=== PATIENT | female | born 1985 | race Caucasian/White ===

== ENCOUNTER 2022-02-13 11:22 | Outpatient (REF) | payer OTHER, SELFPAY | END 2022-02-13 11:23 | disposition home or self-care (01) | LOC: HO.LNP 11:22 | PROVIDERS: Visit Provider Nurse Practitioner Family | DX: N39.0 Urinary tract infection, site not specified (principal) | CPT/HCPCS: 87086; 87088; 87186 ==

== ENCOUNTER 2022-02-17 17:25 | Emergency (ER) | payer OTHER, SELFPAY ==
--- NOTE | ~2022-02-17 | XR_ITS ---
EXAMINATION: XR ANKLE, LEFT CLINICAL INFORMATION: Ankle pain and swelling COMPARISON: None TECHNIQUE: AP, lateral, and mortise views of the left ankle. FINDINGS: There is soft tissue swelling laterally. There is a linear bony fragment seen at the tip of the lateral malleolus medially. Findings consistent with an avulsion fracture. No other fractures are seen. The ankle mortise appears stable. XR/XR ankle LT 2V IMPRESSION: Soft tissue swelling laterally with avulsion fracture at the tip of the lateral malleolus medially.
[2022-02-17 17:36] VITALS: BP 160/100; PULSE 110; O2SAT 98
[2022-02-17 17:42] VITALS: BP 140/83; PULSE 91; RESP 24; TEMP 37.7; O2SAT 98; BMI 25.9
--- NOTE | 2022-02-17 17:43 | ED.EXTPRO ---
HPI - Extremity Problem General Chief complaint: Extremity Problem Stated complaint: SWOLLEN ANKLE Time Seen by Provider: 02/17/22 17:43 Source: patient and EMS Mode of arrival: EMS Limitations: no limitations History of Present Illness HPI Narrative: 36 year old female presents s/p rolling her ankle just prior to arrival. Reports her foot katlyn caught in a textile bag sewer while walking and she rolled her ankle. Reports 10/10 pain and reports that her ankle is very swollen. Pain is worse w/ movement and weight bearing. Never has had left ankle pain before. Denies numbness and tingling. MD Complaint: other (ankle pain ) Related Data Previous Rx's Medication Instructions Recorded sulfamethoxazole 800 1 tab PO Q12H 5 days #10 tabs 02/12/22 mg-trimethoprim 160 mg tablet (Bactrim DS) morphine 15 mg immediate release 15 mg PO Q8H PRN pain #6 tabs 02/17/22 tablet Allergies Allergy/AdvReac Type Severity Reaction Status Date / Time No Known Allergies Allergy Verified 02/12/22 14:25 Review of Systems Review of Systems: Constitutional : No Weight loss, No Fever, No Chills, No Fatigue, No Malaise ENT/Mouth : No sore throat, No Rhinorrhea Eyes: No Eye Pain, No Swelling, No Redness Cardiovascular : No Chest Pain, No SOB, No Dyspnea on Exertion, No Orthopnea, No Edema, No Palpitations Respiratory : No Cough, No Sputum, No Wheezing Gastrointestinal : No Nausea, No Vomiting, No Diarrhea, No Constipation, No abdominal Pain, No Hematochezia, No Melena Genitourinary : No Dysuria, No Urinary Frequency, No Hematuria, Musculoskeletal : + joint pain, No Myalgias, No Joint Swelling Skin : No Skin Lesions, No rash Neuro : No Weakness, No Numbness, No Dizziness, No Headache All other systems reviewed and are negative Yes all other systems are reviewed and are negative [facility] Past Medical History Attestation statement: The following information was validated with the patient. Source: old records reviewed and nursing notes reviewed Physical Exam Vital Signs: Vital Signs: Last Vital Signs Temp 99.8 F 02/17/22 17:42 Pulse 91 02/17/22 17:42 Resp 24 H 02/17/22 17:42 BP 140/83 H 02/17/22 17:42 Pulse Ox 98 02/17/22 17:42 O2 Del Method 02/17/22 17:42 BMI result Body Mass Index 25.9 vss Appearance: Alert.? Oriented X3.? No acute distress.? Head: Normocephalic, atraumatic, no step-offs or deformities Eyes: Pupils equal, round and reactive to light.? CVS: Normal heart rate and rhythm.? Pulses normal.? Respiratory: No respiratory distress.? Breath sounds normal.? Abdomen: Soft and nontender.? Skin: Skin warm and dry.? Normal skin color.? Normal skin turgor.? Extremities: No lower extremity edema.? No calf ttp. 5/5 strength to bilateral upper and lower extremities. + eccymosis & swelling to left lateral malleolous with pain to palpation. Full rom to b/l ankles however painful on left. Normal cap refill to LE. 2+ DP,PT,AT equal andd bl. Normal senation. No foot drop b.l Neuro: Oriented X 3.? No motor deficit.? No sensory deficit. CN 2-12 intact Course Reevaluation(s) Reevaluation #1: X-ray showing an avulsion fracture to the lateral malleolus of affected foot. At this time patient will be discharged home will give morphine for pain, educated on proper use of morphine. Educated on rest, ice, compress and elevate. Will be given crutches and a walking boot. At this time I feel comfortable discharge with prompt PCP and Ortho follow-up. Educated on worrisome signs and symptoms, outlined on discharge. Time: 20:12 MDM - Extremity (Nontraumatic) MDM Narrative Medical decision making narrative: 1748 36 yo f presents w/ left ankle pain sp rolling ankle prior to arrival. 01/19 pain. Evaluated by this PA-C in triage PE- eccymosis & swelling to left lateral malleolous with pain to palpation. Full ROM to b/l ankles however painful on left. Normal cap refill to LE. 2+ DP,PT,AT equal and bl. Normal sensation. No foot drop. Concerns for fx and or dislocation. Other differentials sprain/strain. No signs of NV compromise. Plan- imaging Medical Records Attestation: I reviewed the patient's medical records. Lab Data Attestation: I reviewed the patient's lab results. Critical Care Time Critical Care Time Critical Care Time: No Discharge Plan Discharge Clinical Impression: Avulsion fracture of lateral malleolus Patient Disposition: Home, Self-Care Instructions: Ankle Fracture (ED), Crutch Instructions (ED), R.I.C.E. Treatment (ED) Additional Instructions: Take your medications as prescribed. If you were prescribed antibiotics today, it is important that you take your medication to their entirety, do not skip any doses, do not finish them early. Follow-up with your primary care provider this week. Return to the emergency department with new or worsening symptoms. Such as fevers, chills, chest pain, shortness of breath, nausea, vomiting, dizziness, headache, vision changes, lethargy, significant swelling, numbness or tingling In case of emergency call 911. Rest, ice, compress, elevate extremities. Use crutches as indicated. You can take ibuprofen every 6 hours, Tylenol every 4 as needed for mild to moderate pain or discomfort. For severe pain take morphine as prescribed. Please do not show this medication with others, do not take this while driving or operating machinery, this can cause addiction, do not mix with alcohol. Please follow-up with the orthopedic team information below. Prescriptions: New morphine 15 mg tablet 15 mg PO Q8H PRN (Reason: pain) Qty: 6 0RF Rx Instructions: Partial Fill upon patient request. No Action sulfamethoxazole-trimethoprim [Bactrim DS] 800-160 mg tablet 1 tab PO Q12H 5 Days Qty: 10 0RF [place]errals: [facility] [place] [facility] Surgeons [Provider Group] - 1 week Stand Alone Forms: Work/School Release
[2022-02-17] MEDS: Morphine Sulfate Immed Release 15 MG TABLET PO (20:39)
== END 2022-02-17 21:05 | disposition home or self-care (01) ==
PROVIDERS: Emergency Provider Internal Medicine
DX: S82.62XA Displaced fracture of lateral malleolus of left fibula, initial encounter for closed fracture (principal); W17.1XXA Fall into storm drain or manhole, initial encounter; Y93.01 Activity, walking, marching and hiking; Y92.414 Local residential or business street as the place of occurrence of the external cause; Y99.9 Unspecified external cause status
CPT/HCPCS: 73600; 99283

== ENCOUNTER 2022-02-21 13:03 | Emergency (ER) | payer OTHER, SELFPAY ==
[2022-02-21 14:28] VITALS: BP 135/86; PULSE 92; RESP 16; TEMP 36.2; O2SAT 95; BMI 26.5
--- NOTE | 2022-02-21 14:28 | ED.LOWEXIN ---
HPI - Extremity Injury (Lower) General Chief Complaint: Extremity Injury, Lower Stated Complaint: L Ankle pain Time Seen by Provider: 02/21/22 14:33 Source: patient Mode of arrival: ambulatory Limitations: no limitations History of Present Illness HPI Narrative: 46-year-old female who was seen here on Wednesday after she had a fall where she twisted her ankle was diagnosed with a left ankle avulsion fracture given morphine 6 tablets and has a follow-up appointment with Dr. Troy on the 02 of March presenting to the ER with complaints of worsening pain due to she only had 6 tablets of morphine and her appointments on the and she can not hold off until then. She is currently on methadone she is taking that as prescribed. She denies any new injuries. Reports that she would just like a few more tablets to get her through until her appointment along with Motrin and Tylenol. She denies any other symptoms complaints or concerns at this time. MD complaint: ankle injury and fall Onset (ago): day(s) (4) Injury: Left: ankle Place: street/outdoors Severity: similar to previous episodes Relieving factors: nothing Exacerbating factors: weight bearing, movement and palpation Context: fall Associated symptoms: swelling Other symptoms: none Treatments prior to arrival: cold therapy and other (see above ) Related Data Previous Rx's Medication Instructions Recorded sulfamethoxazole 800 1 tab PO Q12H 5 days #10 tabs 02/12/22 mg-trimethoprim 160 mg tablet (Bactrim DS) morphine 15 mg immediate release 15 mg PO Q8H PRN pain #6 tabs 02/17/22 tablet acetaminophen 500 mg tablet 1,000 mg PO QID PRN fever or pain 02/21/22 (Tylenol Extra Strength) #14 tabs ibuprofen 800 mg tablet 800 mg PO Q8H PRN pain #30 tabs 02/21/22 morphine 15 mg immediate release 15 mg PO Q12H PRN pain #20 tabs 02/21/22 tablet Allergies Allergy/AdvReac Type Severity Reaction Status Date / Time No Known Allergies Allergy Verified 02/12/22 14:25 Review of Systems Review of Systems: Constitutional : No Weight loss, No Fever, No Chills, No Night Sweats, No Fatigue, No Malaise ENT/Mouth : No Hearing loss, No Ear Pain, No Nasal Congestion, No Sinus Pain, No Hoarseness, No sore throat, No Rhinorrhea, No Swallowing Difficulty Eyes: No Eye Pain, No Swelling, No Redness, No Foreign Body, No Discharge, No Vision Changes Cardiovascular : No Chest Pain, No SOB, No Dyspnea on Exertion, No Orthopnea, No Edema, No Palpitations Respiratory : No Cough, No Sputum, No Wheezing, No Smoke Exposure, No Dyspnea Gastrointestinal : No Nausea, No Vomiting, No Diarrhea, No Constipation, No abdominal Pain, No Hematochezia, No Melena Genitourinary : no irregular bleeding, No Dysuria, No Urinary Frequency, No Hematuria, No Urinary Incontinence, No Urgency, No Flank Pain, No Urinary Flow Changes, No Hesitancy Musculoskeletal :+ left ankle joint pain/swelling, No Myalgias Skin : No Skin Lesions, No rash Neuro : No Weakness, No Numbness, No Paresthesias, No Loss of Consciousness, No Dizziness, No Headache Psych : No Anxiety/Panic, No Depression, No SI/HI/AH/VH, No Social Issues, Heme/Lymph: No Bruising, No Bleeding,No Lymphadenopathy Endocrine : No Polyuria, No Polydipsia, No Temperature Intolerance Yes all other systems are reviewed and are negative [facility] Past Medical History Attestation statement: The following information was validated with the patient. Source: old records reviewed and nursing notes reviewed Physical Exam Vital Signs: Vital Signs: Last Vital Signs Temp 97.2 F 02/21/22 14:28 Pulse 92 02/21/22 14:28 Resp 16 02/21/22 14:28 BP 135/86 02/21/22 14:28 Pulse Ox 95 02/21/22 14:28 O2 Del Method 02/21/22 14:28 BMI result Body Mass Index 26.5 vital signs have been reviewed as normal and appeared to be correct. Blood pressure normal Heart rate normal. Respiration rate normal. Temperature normal. Oxygen saturation normal. Appearance: Alert. Oriented X3. No acute distress. Head: Normal external exam. Normocephalic. Atraumatic. Eyes: PERRLA. EOMI. Conjunctiva and sclera normal. Eyelids normal. ENT: Pharynx normal. Uvula midline. Moist mucous membranes. Neck: Normal inspection. Neck supple. FROM. CVS: Normal heart rate and rhythm. Respiratory: No respiratory distress. Painless inspiration. Skin: Skin warm and dry. Normal skin color. Normal skin turgor. No rashes/lesions/lacerations noted. Extremities: No lower extremity edema. Patient with moderate tenderness palpation soft tissue swelling and ecchymosis to the lateral aspect of the left ankle with limited range of motion due to pain. No obvious ligamentous or tendon injury noted. Achilles tendon is intact not ruptured. Not consistent with muscle rupture. No calf tenderness is noted. Otherwise all other extremities exhibit normal range of motion nontender. Neuro: Oriented X 3. No motor deficit. No sensory deficit. Reflexes normal. Normal steady gait. No focal neuro deficits noted. Vascular: + radial pulses/+ 2 distal pedal pulses/+2 dorsalis pedis b/l. Normal cap refill. No cyanosis noted to upper extremity nails and lower extremity toes nails. Course Reevaluation(s) Reevaluation #1: - pt reports she was here Wednesday and had an avulsion fracture now having worsening pain she still has 1 morphine left although is nervous that she will not have anymore medications until her appointment on the . She denies any new injuries. On exam patient has moderate soft tissue swelling and ecchymosis. No obvious ligamentous or tendon injury noted. Will DC home with a new script for Motrin/Tylenol and morphine. I explained to her that we will not be able to give her another prescription she returns a 3rd time therefore she would have to follow up with her primary care provider or methadone clinic about a possibly increasing her methadone dose until her appointment. I also spoke to her about alternate between Motrin Tylenol every 3 hours along with the morphine. Will DC home with instructions to follow-up Orthopedics and her PCP as scheduled and to return if any new or worsening symptoms. Patient understands agrees with this plan. Time: 14:29 MDM - Extremity Injury (Lower) Medical Records Attestation: I reviewed the patient's medical records. Discharge Plan Discharge Clinical Impression: Ankle fracture, left Patient Disposition: Home, Self-Care Instructions: Ankle Fracture (ED) Prescriptions: New morphine 15 mg tablet 15 mg PO Q12H PRN (Reason: pain) Qty: 20 0RF Rx Instructions: Partial Fill upon patient request. ibuprofen 800 mg tablet 800 mg PO Q8H PRN (Reason: pain) Qty: 30 0RF acetaminophen [Tylenol Extra Strength] 500 mg tablet 1,000 mg PO QID PRN (Reason: fever or pain) Qty: 14 0RF No Action morphine 15 mg tablet 15 mg PO Q8H PRN (Reason: pain) Qty: 6 0RF Rx Instructions: Partial Fill upon patient request. sulfamethoxazole-trimethoprim [Bactrim DS] 800-160 mg tablet 1 tab PO Q12H 5 Days Qty: 10 0RF Referrals: [facility] [place] Orthopedic Surgeons [Provider Group] (follow up on the as scheduled )
[2022-02-21] MEDS: Ibuprofen 800 MG TABLET PO (14:40)
[2022-02-21] MEDS: Morphine Sulfate Immed Release 15 MG TABLET PO (14:40)
--- OUTSIDE RECORDS SUMMARY | 2022-02-21 14:50 | XMS_ITS | Continuity of Care Document ---
:1985 Author Organization [facility] Address [address] [place] [address]- Care Team Providers Name Role Phone Not on Staff, PCP Primary Care Physician Unavailable Encounter [facility] Date(s): 12/04/19 - 12/05/[address] [address]- [facility] Discharge Disposition: A-D/C Walkout Attending Physician: Not on Staff, Attending MD Admitting Physician: Not on Staff, Admitting MD Referring Physician: Not on Staff, Referring MD Allergies, Adverse Reactions, Alerts Substance Reaction Severity Status NKA Active Immunizations Given and Recorded Vaccine Date Status Refusal Reason tetanus/diphtheria/pertussis, acel(Tdap) 12/07/13 Given Medications docusate sodium 100 mg oral capsule 1 capsule = 100 mg, By Mouth, 2 times a day, # 60 capsule, 0 Refills, Maintenance, 07/14/19 2:13:00 EDT, Capsule, [id number], 155, cm, 07/14/19 0:21:00 EDT, Height, 67.9, kg, 07/14/19 0:01:00 EDT, Dry Weight Start Date: 07/14/19 Status: OrderedMethadone Liquid = 60 mg, By Mouth, Daily, 0 Refills, Maintenance, 10/21/18 22:03:31 EDT, Solution, Partial fill uponpatient request Start Date: 10/21/18 Status: Ordered Vital Signs Most recent to oldest [Reference Range]: 1 2 Oxygen Saturation [94-100 %] 100 % 98 % (12/04/19 11:52 PM) (12/04/19 9:46 PM) Pulse Rate [55-90 bpm] 86 bpm 97 bpm (12/04/19 11:52 PM) *H* (12/04/19 9:46 PM) Blood Pressure [90-138/55-84 mm Hg] 116/86 mm Hg 132/ 91 mm Hg (12/04/19 11:52 PM) (12/04/19 9:46 PM) Respiratory Rate [16-30 br/min] 14 br/min 16 br/mi n *L* (12/04/19 9:46 PM) (12/04/19 11:52 PM) Temperature [96.8-100.4 DegF] 98.3 DegF 98.2 DegF (12/04/19 11:52 PM) (12/04/19 9:46 PM) Mode of Delivery (Oxygen) Room air Room air (12/04/19 11:52 PM) (12/04/19 9:46 PM) Blood pressure sites Arm, right Arm, left (12/04/19 11:52 PM) (12/04/19 9:46 PM) Temperature Route Oral Oral (12/04/19 11:52 PM) (12/04/19 9:46 PM) Social History Social History Type Response Tobacco Use: 4 or less cigarettes(le ss than 1/4 pack)/day in last 30 days. Sex
--- OUTSIDE RECORDS SUMMARY | 2022-02-21 14:50 | XMS_ITS | Continuity of Care Document ---
:1985 Author Organization [facility] [employer] [facility] p Address [address] [place] [address], [address] [place] [id number]- Care Team Providers Name Role Phone Not on Staff, PCP Primary Care Physician Unavailable [place] [facility] [place] [facility] [employer] [facility] [address] [place] [address], [address] [place] [id number] Allergies, Adverse Reactions, Alerts Substance Reaction Severity Status NKA Active Immunizations Given and Recorded Vaccine Date Status Refusal Reason tetanus/diphtheria/pertussis, acel(Tdap) 12/07/13 Given Not Given Vaccine Date Status Refusal Reason influenza virus vaccine, inactivated 01/30/21 Not Given Patient Refuses Medications docusate sodium 100 mg oral capsule 1 capsule = 100 mg, By Mouth, 2 times a day, # 60 capsule, 0 Refills, Maintenance, 07/14/19 2:13:00 EDT, Capsule, [id number], 155, cm, 07/14/19 0:21:00 EDT, Height, 67.9, kg, 07/14/19 0:01:00 EDT, Dry Weight Start Date: 07/14/19 Status: Ordereddoxycycline hyclate 100 mg oral tablet 1 tablet = 100 mg, By Mouth, 2 times a day, # 22 tablet, 0 Refills, Maintenance, 01/31/21 8:54:00 EDT, Tablet, [id number], Partial fill upon patient request if the prescription is for a schedule II opioid drug., 155, cm, 01/31/21 3:51:00 EDT,... Start Date: 01/31/21 Stop Date: 02/11/21 Status: OrderedDoxycycline Tablet 100 mg, By Mouth, 2 times a day, Maintenance, 01/31/21 8:53:00 EDT Start Date: 01/31/21 Status: OrderedFlagyl 500 mg oral tablet 1 tablet = 500 mg, By Mouth, Every 12 hours, # 22 tablet, 0 Refills, Maintenance, 01/31/21 8:54:00 EDT, Tablet, [id number], Partial fill upon patient request if the prescription is for a schedule II opioid drug., 155, cm, 01/31/21 3:51:00 EDT,... Start Date: 01/31/21 Stop Date: 02/11/21 Status: OrderedMethadone Liquid = 60 mg, By Mouth, Daily, 0 Refills, Maintenance, 10/21/18 22:03:31 EDT, Solution, Partial fill uponpatient request Start Date: 10/21/18 Status: OrderedmetroNIDAZOLE 500 mg oral tablet 1 tablet = 500 mg, By Mouth, Every 12 hours, 0 Refills, Maintenance, 01/31/21 8:53:00 EDT, Tablet, Partial fill upon patient request if the prescription is for a schedule II opioid drug. Start Date: 01/31/21 Status: OrderedZofran 4 mg oral tablet 1 tablet = 4 mg, By Mouth, Every 8 hours, PRN Vomiting, # 12 tablet, 0 Refills, Maintenance, 12/29/19 10:38:00 EDT, Tablet, [id number], 155, cm, 07/28/19 10:23:00 EDT, Height, 67.9, kg, 07/14/19 0:01:00 EDT, Dry Weight Start Date: 12/29/19 Status: OrderedZofran 4 mg oral tablet 1 tablet = 4 mg, By Mouth, Every 8 hours, PRN as needed for nausea/vomiting, # 8 tablet, 0 Refills, Maintenance, 01/31/21 14:16:00 EDT, Tablet, [id number], Partial fill upon patient request if the prescription is for a schedule II opioid drug.... Start Date: 01/31/21 Status: Ordered Problem List Condition Effective Dates Status Health Status Informant Opioid dependence(Confirmed) Active Social History Social History Type Response Smoking Status 10 or more cigarettes (1/2 p ack or more)/day in last 30 days entered on: 01/29/21 Sex
--- OUTSIDE RECORDS SUMMARY | 2022-02-21 14:50 | XMS_ITS | Continuity of Care Document ---
:1985 Author Organization [facility] Address [address] [place] [id number]- Care Team Providers Name Role Phone Not on Staff, PCP Primary Care Physician Unavailable Encounter [facility] [place] Date(s): 02/05/21 - 03/14/[address] [address]- Attending Physician: Not on Staff, Attending MD Allergies, Adverse Reactions, Alerts Substance Reaction [...] 0 Refills, Maintenance, 07/14/19 2:13:00 EDT, Capsule, [id number], 155, cm, 07/14/19 0:21:00 EDT, Height, [...]
--- OUTSIDE RECORDS SUMMARY | 2022-02-21 14:50 | XMS_ITS | Continuity of Care Document ---
:1985 Author Organization [facility] Address [address] [place] [id number]- Care Team Providers Name Role Phone Not on Staff, PCP Primary Care Physician Unavailable [place] [facility] [place] 07/13/19 - 07/14/[address] [address]- [facility] Encounter Diagnosis Ovarian cyst (Final) - 07/13/19 Torsion, ovary (Final) - 07/13/19 Discharge Disposition: A-D/C Home Attending Physician: Luis Kauffman MD Admitting Physician: Luis Kauffman MD Referring Physician: Not on Staff, Referring [...] EDT, Dry Weight Start Date: 07/14/19 Status: Orderedibuprofen 600 mg oral tablet 600 mg, 1, tablet, By Mouth, Every 6 hours, PRN, # 40 tablet, Refills 0, Tot. Refills 0, Acute 08/10/19 2:14:00 EDT, Pain , Mild, 07/14/19 2:13:00 EDT, [facility] to [facility], [id number], 155, cm, 07/14/19 0:21:00 EDT, Height, 67.9,... Start Date: 07/14/19 Stop Date: 08/10/19 Status: OrderedMethadone Liquid = 60 mg, By Mouth, Daily, 0 Refills, Maintenance, 10/21/18 22:03:31 EDT, Solution, Partial fill uponpatient request Start Date: 10/21/18 Status: OrderedoxyCODONE 5 mg oral tablet 5 mg, 1, tablet, By Mouth, Every 6 hours, PRN, # 16 tablet, Refills 0, Tot. Refills 0, Acute 07/31/19 2:14:00 EDT, Pain , Severe, 07/14/19 2:13:00 EDT, Route to Pharmacy Electronically, [facility]/pharmacy #[id number], Partial fill upon patient request, 155, cm, 0... Start Date: 07/14/19 Stop Date: 07/31/19 Status: Orderedsimethicone 80 mg oral tablet, chewable 80 mg, Chew, 3 times a day after meals and bedtime, PRN, For Gaseous Distention/Discomfort, # 36 tablet, Refills 0, Tot. Refills 0, Acute 07/31/19 2:15:00 EDT, Other, 07/14/19 2:13:00 EDT, Route to Pharmacy Electronically, [facility]/pharmacy #[id number], 155, cm,... Start Date: 07/14/19 Stop Date: 07/31/19 Status: OrderedTylenol 325 mg oral tablet 975 mg, 3, tablet, By Mouth, Every 6 hours, PRN, # 50 tablet, Refills 0, Tot. Refills 0, Acute 08/10/19 2:14:00 EDT, Pain , Moderate, 07/14/19 2:13:00 EDT, Route to Pharmacy Electronically, [facility]/pharmacy #[id number], 155, cm, 07/14/19 0:21:00 EDT, Height, 67... Start Date: 07/14/19 Stop Date: 08/10/19 Status: Ordered Results Orders for Microbiology Reports Name Date Urine Culture (URINE CULTURE) 07/13/19 Microbiology Reports TEST:Urine Culture STATUS:Unauthenticated BODY SITE: SOURCE:URINE COLLECTED DATE/TIME:07/13/19 2:00 PMUrine Culture SPECIMEN DESCRIPTION : URINE CLEAN CATCH/MIDSTREAM SPECIAL REQUESTS : NONE Reflexed from [id number] CULTURE : >100,000 COL/ML GRAM NEGATIVE RODS REPORT STATUS : PRELIMINARY REPORT Vital Signs Most recent to oldest 1 2 3 [Reference Range]: Height 155 cm 155 cm 155 cm (07/14/19 4:03 AM) (07/14/19 12:21 AM) (07/14/19 12:00 AM) Weight 67.9 kg 68 kg 68.1 kg (07/14/19 12:01 AM) (07/14/19 12:00 AM) (07/13/19 6:14 PM) Oxygen Saturation [94-100 98 % 100 % 99 % %] (07/14/19 4:03 AM) (07/14/19 12:21 AM) (07/13/19 11:00 PM) Pulse Rate [55-90 bpm] 84 bpm 69 bpm 72 bpm (07/14/19 4:03 AM) (07/14/19 12:21 AM) (07/13/19 6:14 PM) Body Mass Index 28.3 28.35 [18.5-24.99] *H* *H* (07/14/19 12:00 AM) (07/13/19 6:14 PM) Blood Pressure 92/57 mm Hg 128/80 mm Hg 127/85 mm Hg [90-138/55-84 mm Hg] (07/14/19 4:03 AM) (07/14/19 12:21 AM) (07/13/19 11:00 PM) Respiratory Rate [16-30 18 br/min 17 br/min 16 br/mi n br/min] (07/14/19 4:03 AM) (07/14/19 12:21 AM) (07/13/19 11:00 PM) Temperature [96.8-100.4 97.9 DegF 97.5 DegF 98 DegF DegF] (07/14/19 4:03 AM) (07/14/19 12:21 AM) (07/13/19 11:00 PM) Liters per Minute 5 L/min 5 L/min 5 L/min (07/13/19 10:30 PM) (07/13/19 10:15 PM) (07/13/19 10:0 0 PM) Mode of Delivery (Oxygen) Room air Room air Room a ir (07/14/19 4:03 AM) (07/14/19 12:21 AM) (07/13/19 11:00 PM) Blood pressure sites Arm, left Arm, left Arm, left (07/14/19 4:03 AM) (07/14/19 12:21 AM) (07/13/19 10:30 PM) Temperature Route Oral Oral Temporal (07/14/19 4:03 AM) (07/14/19 12:21 AM) (07/13/19 11:00 PM) Dry Weight 67.9 kg 68 kg 68.1 kg (07/14/19 12:01 AM) (07/14/19 12:00 AM) (07/13/19 6:14 PM) Weight Obtained Via Bed scale Bed scale Patient/fami ly stated (07/14/19 12:01 AM) (07/14/19 12:00 AM) (07/13/19 6:14 PM) Dry Weight Obtained Via Bed scale Bed scale Patient/ family stated (07/14/19 12:01 AM) (07/14/19 12:00 AM) (07/13/19 6:14 PM) Social History Social History Type Response Tobacco Use: 4 or less cigarettes(le ss than 1/4 pack)/day in last 30 days. Sex
--- OUTSIDE RECORDS SUMMARY | 2022-02-21 14:50 | XMS_ITS | Continuity of Care Document ---
:1985 Author Organization [facility] Address [address] [place] [address]- Care Team Providers Name Role Phone Not on Staff, PCP Primary Care Physician Unavailable Encounter [facility] [id number] Date(s): 06/29/21 - 06/29/[address] [address]- Discharge Disposition: A-D/C Home Attending Physician: Nelson Palomares MD Admitting Physician: Nelson Palomares MD Referring Physician: Not on Staff, Referring MD Allergies, Adverse Reactions, Alerts No Known Allergies Immunizations Given and Recorded Vaccine Date Status Refusal Reason tetanus/diphtheria/pertussis, acel(Tdap) 12/07/13 Given Not Given Vaccine Date Status Refusal Reason influenza virus vaccine, inactivated 01/30/21 Not Given Patient Refuses Medications docusate sodium 100 mg oral capsule 1 capsule = 100 mg, By Mouth, 2 times a day, # 60 capsule, 0 Refills, Maintenance, 07/14/19 2:13:00 EDT, Capsule, [facility]/pharmacy #[id number], 155, cm, 07/14/19 0:21:00 EDT, Height, [...] Status Health Status Informant Opioid dependence(Confirmed) Active Results Radiology Reports Exam Date Time Procedure Performing Provider Status 06/29/21 2:11 PM Wrist Comp Min 3 Views Right Alexia Cheema [facility] (Verified) Notes:(Wrist Comp Min 3 Views Right) Reason For Exam: PainRESULT: Wrist Comp Min 3 Views Right Wrist Comp Min 3 Views Right HX OF PRESENT ILLNESS: woke this morning with right wrist pain and swelling; no recent injury. States she is an IVDU, last use three weeks ago. Nurse at methadone clinic suggested patient be seen; Reason: Pain; Clinical Question(s): Arthritis COMPARISON: None. FINDINGS: No fracture or dislocation. No arthritic change. Normal carpal configuration. Intact radial and ulnar styloid processes. Normal soft tissues. IMPRESSION: Normal. WSN: [id number] Ordering Physician: Kashmir Posey Dictated By: Chaz Allen MD Dictated Date/Time: 06/29/21 2:14 pm Reviewed By: Chaz Allen MD Signed By: Chaz Allen MD Signed Date/Time: 06/29/21 2:14 pm Transcribed By: GRANT Transcribed Date/Time: 06/29/21 2:13 pm Vital Signs Most recent to oldest [Reference Range]: 1 2 Height 155 cm 155 cm (06/29/21 1:04 PM) (06/29/21 1:02 PM) Weight 71.8 kg 71.8 kg (06/29/21 1:04 PM) (06/29/21 1:02 PM) Oxygen Saturation [94-100 %] 99 % (06/29/21 1:04 PM) Pulse Rate [55-90 bpm] 60 bpm (06/29/21 1:04 PM) Body Mass Index [18.5-24.99] 29.89 *H* (06/29/21 1:02 PM) Blood Pressure [90-138/55-84 mm Hg] 136/92 mm Hg (06/29/21 1:04 PM) Respiratory Rate [16-30 br/min] 16 br/min (06/29/21 1:04 PM) Temperature [96.8-100.4 DegF] 99.4 DegF (06/29/21 1:04 PM) Mode of Delivery (Oxygen) Room air (06/29/21 1:04 PM) Blood pressure sites Arm, left (06/29/21 1:04 PM) Temperature Route Temporal (06/29/21 1:04 PM) Dry Weight 71.8 kg 71.8 kg (06/29/21 1:04 PM) (06/29/21 1:02 PM) Dry Weight Obtained Via Standing scale (06/29/21 1:02 PM) Social History Social History Type Response Smoking Status 10 or more cigarettes (1/2 p ack or more)/day in last 30 days entered on: 01/29/21 Sex
--- OUTSIDE RECORDS SUMMARY | 2022-02-21 14:50 | XMS_ITS | Continuity of Care Document ---
:1985 Author Organization [facility] Address [address] [place] [id number]- Care Team Providers Name Role Phone Not on Staff, PCP Primary Care Physician Unavailable [place] [facility] [place](s): 07/28/19 - 08/04/[address] [address]- [facility] Attending Physician: Katlyn Geiger DO Referring Physician: Elsa Andrade MD Allergies, Adverse Reactions, Alerts Substance Reaction Severity Status NKA Active Immunizations Given and Recorded Vaccine Date Status Refusal Reason tetanus/diphtheria/pertussis, acel(Tdap) 12/07/13 Given Medications docusate sodium 100 mg oral capsule 1 capsule = 100 mg, By Mouth, 2 times a day, # 60 capsule, 0 Refills, Maintenance, 07/14/19 2:13:00 EDT, Capsule, [facility]/pharmacy #[id number], 155, cm, 07/14/19 0:21:00 EDT, Height, 67.9, kg, 07/14/19 0:01:00 EDT, Dry Weight Start Date: 07/14/19 Status: Orderedibuprofen 600 mg oral tablet 600 mg, 1, tablet, By Mouth, Every 6 hours, PRN, # 40 tablet, Refills 0, Tot. Refills 0, Acute 08/10/19 2:14:00 EDT, Pain , Mild, 07/14/19 2:13:00 EDT, Route to Pharmacy Electronically, [facility]/pharmacy #[id number], 155, cm, 07/14/19 0:21:00 EDT, Height, 67.9,... Start Date: 07/14/19 Stop Date: 08/10/19 Status: OrderedMethadone Liquid = 60 mg, By Mouth, Daily, 0 Refills, Maintenance, 10/21/18 22:03:31 EDT, Solution, Partial fill uponpatient request Start Date: 10/21/18 Status: OrderedTylenol 325 mg oral tablet 975 mg, 3, tablet, By Mouth, Every 6 hours, PRN, # 50 tablet, Refills 0, Tot. Refills 0, Acute 08/10/19 2:14:00 EDT, Pain , Moderate, 07/14/19 2:13:00 EDT, Route to Pharmacy Electronically, [facility]/pharmacy #[id number], 155, cm, 07/14/19 0:21:00 EDT, Height, 67... Start Date: 07/14/19 Stop Date: 08/10/19 Status: Ordered Vital Signs Most recent to oldest [Reference Range]: 1 Height 155 cm (07/28/19 10:23 AM) Social History Social History Type Response Tobacco Use: 4 or less cigarettes(le ss than 1/4 pack)/day in last 30 days. Sex
--- OUTSIDE RECORDS SUMMARY | 2022-02-21 14:50 | XMS_ITS | Continuity of Care Document ---
:1985 Author Organization [facility] Address [address] [place] [id number]- Care Team Providers Name Role Phone Not on Staff, PCP Primary Care Physician Unavailable Encounter [facility] Date(s): 03/15/21 - 04/18/[address] [id number] Attending Physician: Not on Staff, Attending MD [...] Refills, Maintenance, 07/14/19 2:13:00 EDT, Capsule, [facility]/pharmacy #[id number], 155, cm, 07/14/19 0:21:00 EDT, Height, [...]
--- OUTSIDE RECORDS SUMMARY | 2022-02-21 14:50 | XMS_ITS | Continuity of Care Document ---
:1985 Author Organization [facility] Address [address] [place] [address]- Care Team Providers Name Role Phone Not on Staff, PCP Primary Care Physician Unavailable [place] [facility] [place] 12/29/[address] [address]- [facility] Discharge Disposition: A-D/C Home Attending Physician: Ilan Pinzon DO Admitting Physician: Ilan Pinzon DO Referring Physician: Not on Staff, Referring MD [...] fill uponpatient request Start Date: 10/21/18 Status: OrderedZofran 4 mg oral tablet 1 tablet = 4 mg, By Mouth, Every 8 hours, PRN Vomiting, # 12 tablet, 0 Refills, Maintenance, 12/29/19 10:38:00 EDT, Tablet, [facility]/pharmacy #[id number], 155, cm, 07/28/19 10:23:00 EDT, Height, 67.9, kg, 07/14/19 0:01:00 EDT, Dry Weight Start Date: 9/18/20 Status: Ordered Vital Signs Most recent to oldest 1 2 3 [Reference Range]: Oxygen Saturation [94-100 %] 97 % 96 % 96 % (12/29/19 5:39 AM) (12/29/19 2:46 AM) (12/28/19 10: 23 PM) Pulse Rate [55-90 bpm] 85 bpm 82 bpm 98 bpm (12/29/19 5:39 AM) (12/29/19 2:46 AM) *H* (12/28/19 10:23 P M) Blood Pressure [90-138/55-84 99/69 mm Hg 103/64 mm Hg 135 /90 mm Hg mm Hg] (12/29/19 5:39 AM) (12/29/19 2:46 AM) (12/28/19 10: 23 PM) Respiratory Rate [16-30 18 br/min 18 br/min 20 br/mi n br/min] (12/29/19 5:39 AM) (12/29/19 2:46 AM) (12/28/19 10: 23 PM) Temperature [96.8-100.4 DegF] 97.9 DegF 98.5 DegF 98 .8 DegF (12/29/19 5:39 AM) (12/29/19 2:46 AM) (12/28/19 10: 23 PM) Mode of Delivery (Oxygen) Room air Room air Room a ir (12/29/19 5:39 AM) (12/29/19 2:46 AM) (12/28/19 10: 23 PM) Blood pressure sites Arm, right Arm, left Arm, right (12/29/19 5:39 AM) (12/29/19 2:46 AM) (12/28/19 10: 23 PM) Temperature Route Oral Oral Oral (12/29/19 5:39 AM) (12/29/19 2:46 AM) (12/28/19 10: 23 PM) Social History Social History Type Response Tobacco Use: 4 or less cigarettes(le ss than 1/4 pack)/day in last 30 days. Sex
--- OUTSIDE RECORDS SUMMARY | 2022-02-21 14:50 | XMS_ITS | Continuity of Care Document ---
:1985 Author Organization [facility] Address [address] [place] [address]- Care Team Providers Name Role Phone Not on Staff, PCP Primary Care Physician Unavailable [place] [facility] [place](s): 02/05/21 - 03/08/[address] [address] Attending Physician: Luca Sorenson MD Admitting Physician: Luca Sorenson MD Referring Physician: Edith Marlow DO Allergies, Adverse Reactions, Alerts Substance Reaction Severity [...]
--- OUTSIDE RECORDS SUMMARY | 2022-02-21 14:50 | XMS_ITS | Continuity of Care Document ---
:1985 Author Organization [facility] Address [address] [place] [address]- Care Team Providers Name Role Phone Not on Staff, PCP Primary Care Physician Unavailable Encounter [facility] [place] Date(s): 07/28/19 - 08/07/[address] [address]- [facility] Attending Physician: Robina Ramos Admitting Physician: AdmtrRobina Referring Physician: AdmtrRobina Allergies, Adverse Reactions, Alerts Substance Reaction Severity [...] 07/14/19 2:13:00 EDT, Route to Pharmacy Electronically, [facility]/pharmacy #[id number], 155, cm, 07/14/19 0:21:00 EDT, Height, 67... Start Date: 07/14/19 Stop Date: 08/10/19 Status: Ordered Social History Social History Type Response Tobacco Use: 4 or less cigarettes(le ss than 1/4 pack)/day in last 30 days. Sex
--- OUTSIDE RECORDS SUMMARY | 2022-02-21 14:50 | XMS_ITS | Continuity of Care Document ---
:1985 Author Organization [facility] Address [address] [place] [address]- Care Team Providers Name Role Phone Not on Staff, PCP Primary Care Physician Unavailable Encounter [facility] [place] Date(s): 01/28/21 - 01/31/[address] [address] Discharge Disposition: A-D/C Home Attending Physician: Loretta Michelle DO Admitting Physician: Loretta Michelle DO Referring Physician: Not on Staff, Referring [...] fill uponpatient request Start Date: 10/21/18 Status: OrderedMethadone Liquid 65 mg, Solution, By Mouth, 01/31/21 9:00:00 EDT Start Date: 01/31/21 Stop Date: 01/31/21 Status: CompletedmetroNIDAZOLE 500 mg oral tablet 1 tablet = [...] Status Health Status Informant Opioid dependence(Confirmed) Active Procedures Procedure Date Related Diagnosis Body Site Status Laparoscopic right ovarian cystectomy Completed Vital Signs Most recent to oldest 1 2 3 [Reference Range]: Height 155 cm 155 cm 155 cm (01/31/21 11:16 AM) (01/31/21 9:17 AM) (01/31/21 3:51 AM) Weight 64.5 kg 68 kg (01/29/21 8:21 PM) (01/29/21 6:43 PM) Oxygen Saturation [94-100 93 % 91 % 100 % %] *L* *L* (01/31/21 3:51 A M) (01/31/21 11:16 AM) (01/31/21 9:17 AM) Pulse Rate [55-90 bpm] 64 bpm 60 bpm 60 bpm (01/31/21 11:16 AM) (01/31/21 9:17 AM) (01/31/21 3:51 AM) Body Mass Index 26.85 [18.5-24.99] *H* (01/29/21 8:21 PM) Blood Pressure 105/65 mm Hg 107/57 mm Hg 107/73 mm Hg [90-138/55-84 mm Hg] (01/31/21 11:16 AM) (01/31/21 9:17 AM) ( 3:51 AM) Respiratory Rate [16-30 20 br/min 16 br/min 20 br/mi n br/min] (01/31/21 11:16 AM) (01/31/21 11:10 AM) ( 9:17 AM) Temperature [96.8-100.4 97.5 DegF 98.1 DegF 97.8 Deg F DegF] (01/31/21 11:16 AM) (01/31/21 9:17 AM) (01/31/21 3:51 AM) Mode of Delivery (Oxygen) Room air Room air Room a ir (01/31/21 11:16 AM) (01/31/21 9:17 AM) (01/31/21 3:51 AM) Blood pressure sites Arm, right Arm, right Arm, right (01/31/21 11:16 AM) (01/31/21 9:17 AM) (01/31/21 3:51 AM) Temperature Route Oral Oral Oral (01/31/21 11:16 AM) (01/31/21 9:17 AM) (01/31/21 3:51 AM) Dry Weight 64.5 kg (01/29/21 8:21 PM) Weight Obtained Via Bed scale (01/29/21 6:43 PM) Social History Social History Type Response Smoking Status 10 or more cigarettes (1/2 p ack or more)/day in last 30 days entered on: 01/29/21 Sex
--- OUTSIDE RECORDS SUMMARY | 2022-02-21 14:50 | XMS_ITS | Continuity of Care Document ---
:1985 Author Organization [facility] Address [address] [place] [address]- Care Team Providers Name Role Phone Not on Staff, PCP Primary Care Physician Unavailable Encounter [facility] Date(s): 02/12/21 - 03/14/[address] [address] Attending Physician: oRbina Ramos Admitting Physician: Robina Ramos Referring Physician: AdmtrRobina Allergies, Adverse Reactions, Alerts [...]
== END 2022-02-21 14:51 | disposition home or self-care (01) ==
LOC: HO.ED 14:49
PROVIDERS: Emergency Provider Emergency Medicine
DX: S82.892D Other fracture of left lower leg, subsequent encounter for closed fracture with routine healing (principal); X50.1XXD Overexertion from prolonged static or awkward postures, subsequent encounter
CPT/HCPCS: 99283

== ENCOUNTER → 2022-03-02 09:50 | Outpatient (BNVA) | payer OTHER, SELFPAY | PROVIDERS: Visit Provider Physician Assistant | DX: S93.402A Sprain of unspecified ligament of left ankle, initial encounter (principal) | CPT/HCPCS: 99202 ==

== ENCOUNTER → 2022-04-16 09:58 | Outpatient (BNVA) | payer OTHER, SELFPAY | PROVIDERS: Visit Provider Physician Assistant | DX: S93.402D Sprain of unspecified ligament of left ankle, subsequent encounter (principal); S82.892D Other fracture of left lower leg, subsequent encounter for closed fracture with routine healing | CPT/HCPCS: 99212 ==

== ENCOUNTER → 2022-07-03 12:53 | Outpatient (BNVA) | payer OTHER, SELFPAY | PROVIDERS: Visit Provider Physician Assistant | DX: S93.402D Sprain of unspecified ligament of left ankle, subsequent encounter (principal); S82.892D Other fracture of left lower leg, subsequent encounter for closed fracture with routine healing | CPT/HCPCS: 99212 ==

== ENCOUNTER 2022-07-28 13:27 | Outpatient (REF) | payer OTHER, SELFPAY ==
--- NOTE | ~2022-07-28 | MR_ITS ---
EXAMINATION: MRI ANKLE WITHOUT CONTRAST, LEFT CLINICAL INFORMATION: Left ankle sprain COMPARISON: Radiographs 02/17/2022 TECHNIQUE: MRI without contrast is performed on the left ankle. FINDINGS: The anterior talofibular and calcaneofibular ligaments are thickened, ill-defined and intermediate in signal compatible with subacute sprains. Ankle ligaments are otherwise unremarkable. No ankle joint effusion. No talar OCD. The Achilles tendon, posterior tibialis tendon, peroneal tendons, flexor and extensor tendons are intact. The plantar fascia is intact. The sinus tarsi is normal. MR/MR ankle LT wo con IMPRESSION: Subacute sprains of the anterior talofibular and calcaneofibular ligaments. Otherwise unremarkable.
== END 2022-07-28 13:28 | disposition home or self-care (01) ==
LOC: HO.MRI 13:27
PROVIDERS: Visit Provider Physician Assistant
DX: S93.402A Sprain of unspecified ligament of left ankle, initial encounter (principal)
CPT/HCPCS: 73721

== ENCOUNTER → 2022-08-19 15:01 | Outpatient (BNVA) | payer OTHER, SELFPAY | PROVIDERS: Visit Provider Physician Assistant ==

== ENCOUNTER 2023-07-30 00:25 | Emergency (ER) | payer OTHER, SELFPAY ==
[2023-07-30 00:36] VITALS: BP 100/51; BP 118/90; PULSE 68; PULSE 76; RESP 16; TEMP 36.4; O2SAT 96; O2SAT 97; BMI 29.3
--- NOTE | 2023-07-30 01:00 | PC.NURSE ---
pt refusing to s
--- NOTE | 2023-07-30 01:20 | PC.NURSE ---
pt refusing to secure belongings and change into hospital clothing, now expressing desire to leave due to security presence. explained hospital process at arrival, pt verbalized understanding. provider notified and sts will see pt shortly to discuss potential discharge
--- NOTE | 2023-07-30 01:35 | ED_ITS ---
HPI - General Adult General Chief complaint: ETOH/Substance Use Stated complaint: crisis Time Seen by Provider: 07/30/23 01:05 Source: EMS and RN notes reviewed Mode of arrival: EMS Limitations: no limitations History of Present Illness HPI narrative: patient in methadone program, relapsed on heroin, she is depressed but denies suicidal ideation. Stating now that she does not want to be evaluated or admitted and she is not suicidal Onset (ago): month(s) Severity: mild Related Data Home Medications ?Medication ?Instructions ?Recorded ?Confirmed methadone 10 mg/5 mL oral solution 60 mg PO Q4H 03/02/22 03/02/22 Previous Rx's ?Medication ?Instructions ?Recorded acetaminophen 500 mg tablet 1,000 mg (2 x 500 mg) PO QID PRN 02/21/22 (Tylenol Extra Strength) fever or pain #14 tabs ibuprofen 800 mg tablet 800 mg PO Q8H PRN pain #30 tabs 03/02/22 Allergies Allergy/AdvReac Type Severity Reaction Status Date / Time No Known Allergies Allergy Verified 07/30/23 00:47 Review of Systems Review of Systems: Yes all other systems are reviewed and are negative Neurologic: Denies Sensory deficit (Neuro) [facility] Past Medical History Surgical History History of left salpingo-oophorectomy Social History Social History Alcohol intake: current Alcohol intake frequency: a few times a month Alcohol type: beer Patient Tobacco Use Status: Current everyday Tobacco user Smoked in Last 30 Days: Yes Use of substances other than those prescribed or required for medical reasons: Yes Substance Use Type: Heroin, Marijuana and Opiates Substance Use Frequency: Daily Last Used Substance: Hours (ago) Any prior treatment program specific to substance use: Yes Patient : No Current occupational status: unemployed Current occupation: rt hand Physical Exam ED Vital Signs: Vital Signs - 24 hr 07/30/23 00:36 Temperature 97.6 F Pulse Rate 68 Respiratory Rate 16 Blood Pressure 100/51 L Pulse Oximetry 97 Oxygen Delivery Method Room Air BMI result Body Mass Index 29.3 Const Other: female looking older than stated age Nutritional Appearance: average body habitus Orientation/consciousness: oriented to person and patient oriented x3 Limitations: no limitations HENMT Head: Yes normal to inspection Ears: external ears normal General nose exam: Normal external nose present Mouth: Normal oral and palatal mucosa present and oropharynx normal Throat: Yes posterior oropharynx normal Eyes General: appearance normal, both eyes and all related structures Neck Neck: Yes normal visual inspection Chest Chest palpation & inspection: normal inspection of the chest Resp Auscultation: clear to auscultation bilaterally Cardio Jugular venous distension: no JVD Rate: regular rate Rhythm: regular rhythm Heart sounds: S1 normal heart sound present and S2 normal heart sound present GI Inspection: Yes normal to inspection Palpation (GI): Soft to palpation, nontender and No hepatosplenomegaly present Auscultation: normal bowel sounds General: Yes no CVA tenderness Back/Spine/Pelvis Back: no CVA tenderness Skin General skin exam: no rashes or lesions noted Neuro General: oriented to person and patient oriented x3 Cranial nerves: Yes CN's II-XII intact bilaterally Motor exam (neuro): 5/5 motor strength present throughout Sensory Exam: No Sensory deficit (Neuro) Extrem General: Yes normal to inspection Psych Other: states she is depressed but denies suicidal or homicidal ideation Course Reevaluation(s) Reevaluation #1: patient denies being suicidal will not hold her for evaluation, will dc with narcan Time: 02:16 Medical Decision Making Differential Diagnosis Differential Diagnoses: The differential diagnosis associated with the presentation includes (opiate abuse, depression) Admission/Observation Consideration of admission/observation: Escalation of care including admission/observation considered Chronic Conditions Patient?s care impacted by: Other (drug abuse) Social Determinants Patient?s care significantly limited by Social Determinants of Health including: Alcoholism and drug addiction in family Discharge Plan Discharge Clinical Impression: Polysubstance abuse, Depression Patient Disposition: Home, Self-Care Instructions: Depression (ED), Polysubstance Abuse (ED) Prescriptions: No Action acetaminophen [Tylenol Extra Strength] 500 mg tablet 1,000 mg PO QID PRN (Reason: fever or pain) Qty: 14 0RF methadone 10 mg/5 mL solution 60 mg PO Q4H ibuprofen 800 mg tablet 800 mg PO Q8H PRN (Reason: pain) Qty: 30 3RF Referrals: Physician,Nonstaff [Physician] - 5 days Print Language: Djib[place]ian
[2023-07-30 02:52] VITALS: BP 96/58; PULSE 58; RESP 16; TEMP 36.6; O2SAT 97
== END 2023-07-30 03:02 | disposition home or self-care (01) ==
LOC: HO.ED 02:56
PROVIDERS: Emergency Provider Emergency Medicine
DX: F32.A Depression, unspecified (principal); F19.10 Other psychoactive substance abuse, uncomplicated
CPT/HCPCS: 99283; 99284